=== PATIENT | male | born 1995 | race Caucasian/White ===

== ENCOUNTER 2018-06-30 20:11 | Emergency (ER) | payer OTHER ==
[~2018-06-30 20:11] MED LIST: Iopamidol 370 76% 100 ML VIAL ONE; Iopamidol 370 76% 50 ML VIAL FS ONE
[2018-06-30] MEDS ORDERED: Piperacillin/Tazobactam 4.5 GM VIAL ONE (20:28)
[2018-06-30 20:48] LABS: #Monocytes 0.4 thou/uL (0.11-0.59); #Neutrophils 2.2 thou/uL (1.40-6.50); %Basophils 1.3 % (0.0-1.0); %Eosinophils 0.6 % (0.0-10.0); %Lymphocytes 26.7 % (21.0-51.0); %Monocytes 11.9 % (0.0-10.0); %Neutrophils 59.5 % (42.0-75.0); Hemoglobin 13.5 g/dL (14.0-18.0); Mean Corpuscular Hemoglobin 29.7 pg (27.0-31.0); Mean Corpuscular Volume 87.2 fL (78.0-98.0); Platelet Count 200 thou/uL (130-400); RBC Distribution Width 11.2 % (11.5-14.5); Red Blood Cell (RBC) Count 4.57 mill/uL (4.70-6.10); White Blood Cell (WBC) Count 3.7 thou/uL (4.8-10.8)
--- NOTE | 2018-06-30 20:50 | RAD ---
AP view chest. HISTORY: Abdominal pain and chest pain. AP view chest is obtained on 06/30/2018. The lungs are well aerated. No evidence of active intrathoracic disease seen. No evidence of effusion s, pneumonia or pneumothorax seen. IMPRESSION: Unremarkable AP view chest.
[2018-06-30 21:12] LABS: ALT (SGPT) 69 U/L (8-55); AST (SGOT) 58 U/L (5-34); Albumin 4.1 g/dL (3.5-5.0); Alkaline Phosphatase 44 U/L (40-150); Anion Gap 12 mmol/L (10-20); BUN (Urea Nitrogen) 14 mg/dL (8.9-20.6); Bilirubin, Total 0.4 mg/dL (0.2-1.2); Calc. Creatinine Clearance 0 mL/min (70-130); Calcium 9.1 mg/dL (7.8-10.44); Carbon Dioxide 28 mmol/L (22-29); Chloride 102 mmol/L (98-107); Estimated GFR-MDRD 77; Globulin 2.8 g/dL (2.4-3.5); Glucose 120 mg/dL (70-105); Lipase 19 U/L (8-78); Potassium 3.9 mmol/L (3.5-5.1); Protein, Total 6.9 g/dL (6.0-8.3); Sodium 138 mmol/L (136-145)
[2018-06-30 21:47] LABS: Bilirubin Negative (Negative); Blood, Urine Negative (Negative); Clarity TURBID (Clear); Glucose, Urine (Dipstick) Negative (Negative); Leukocyte Negative (Negative); Nitrite Negative (Negative); Protein, Urine (Dipstick) Negative (Neg-Trace); Specific Gravity, Urine 1.017 (1.002-1.036); Urobilinogen 0.2 mg/dL (0.2-1.0); pH, Urine 7.5 (5.0-9.0)
--- NOTE | 2018-06-30 22:59 | CT ---
Contrast-enhanced CT images abdomen pelvis. HISTORY: Right lower quadrant pain Contrast-enhanced CT images of the abdomen pelvis obtained after administration of IV and oral contra st. The lung bases are unremarkable. No evidence of free intraperitoneal air seen. The liver, spleen, gallbladder, pancreas, adrenal glands and kidneys are unremarkable. No dilated loops of small bowel seen. A normal appendix is visualized. There is abnormal thickening involving the mucosa of the cecum, a descending colon and hepatic flexur e. This is concerning for colitis. Some descending and sigmoid colonic mucosal thickening also seen. There are abnormally enlarged mesenteric lymph nodes. IMPRESSION: 1:Abnormal colonic mucosal thickening concerning for colitis. 2:Mesenteric lymphadenopathy.
== END 2018-06-30 23:21 | disposition home or self-care (01) ==
LOC: ERS 20:11
DX: K52.9 Noninfective gastroenteritis and colitis, unspecified (principal); F17.220 Nicotine dependence, chewing tobacco, uncomplicated
CPT/HCPCS: 71045; 74177; 80053; 81003; 83605; 83690; 85025; 87040; 87086; 96361; 96365; J2543; Q9967